=== PATIENT | male | born 1955 | race African-American/Black ===

== ENCOUNTER 2022-09-18 18:12 | Observation (INO) ==
--- NOTE | 2022-09-18 18:38 | ED.PDOC ---
General ED Provider: Dr. MARJORIE JANSEN MD Chief Complaint: Weakness Stated Complaint: Patient was diagnosed with covid infection 5 days ago. He has since suffered progressive generalized weakness and is now unable to stand or ambulate. He and his can no longer provide necessary care for him at home. Patient has no other complaints. Of note, he does have a fractured left shoulder from 06/04. Time Seen by Provider: 09/18/22 18:20 Primary Care Provider: JULIO RACHEL Nursing and Triage Documentation Reviewed and Agree: Yes Does patient meet sepsis criteria?: No System Inflammatory Response Syndrome: Not Applicable Sepsis Protocol: For patient's 13 years and over: Temp is 96.8 and below OR 101 and greater Pulse >90 BPM Resp >20/minute Acutely Altered Mental Status Are patient's symptoms suggestive of a new infection, such as: -Pneumonia -Skin, Soft Tissue -Endocarditis -UTI -Bone, Joint Infection -Implantable Device -Acute Abdominal Infection -Wound Infection -Meningitis -Blood Stream Catheter Infection -Unknown Review of Systems Review Of Systems Constitutional: Reports Weakness Eyes: Reports No symptoms Ears, Nose, Mouth, Throat: Reports No symptoms Respiratory: Reports No symptoms Cardiac: Reports No symptoms GI: Reports No symptoms : Reports No symptoms Musculoskeletal: Reports Joint pain (left shoulder) Skin: Reports No symptoms Neurological: Reports No symptoms Endocrine: Reports No symptoms Hematologic/Lymphatic: Reports No symptoms All Other Systems: Reviewed and Negative [facility] Medical History (Updated 09/18/22 @ 18:56 by MARJORIE JANSEN MD) Diabetes type 2, controlled Esophageal mass HTN (hypertension) Humerus fracture Pulmonary embolism Torn meniscus Family History (Updated 09/02/22 @ 15:18 by ARPITA COLIN RN) MATERNAL GRANDMOTHER Stroke Mother Emphysema lung Social History Smoking and tobacco status: Never smoker Physical Exam Physical Exam Appearance: Reports Well-appearing, No pain distress, Well-nourished, Obese and Other (Patient with left arm sling in place.) Ill-appearing: Mild Pain Distress: None Eyes: Reports RYAN and EOMI ENT: Reports Nose normal and Oropharynx normal Neck: Supple Respiratory: Reports Airway patent, Breath sounds clear and Breath sounds equal Cardiovascular: Reports RRR, No rub and No murmur GI/: Reports Soft, Nontender, No masses and Bowel sounds normal Musculoskeletal: Reports No edema Skin: Reports Warm, Dry and Normal color Neurological: Reports Alert and Oriented Psychiatric: Reports Affect appropriate and Mood appropriate Critical Care Note Critical Care Note Total Critical Care Time (mins): 0 Course Course Hematology/Chemistry: 09/18/22 18:43 Orders, Labs, Meds: Lab Review 09/18/22 18:43 WBC 11.50 H RBC 3.56 L Hgb 9.8 L Hct 30.8 L MCV 86.5 MCH 27.5 MCHC 31.8 RDW Coeff of Eduardo 15.2 H Plt Count 532 H Immature Gran % (Auto) 0.4 Neut % (Auto) 66.6 Lymph % (Auto) 19.7 [place] % (Auto) 10.7 H Eos % (Auto) 2.3 Baso % (Auto) 0.3 Neut # (Auto) 7.7 H Lymph # (Auto) 2.3 [place] # (Auto) 1.2 Eos # (Auto) 0.3 Baso # (Auto) 0.0 Immature Gran # (Auto) 0.1 Orders Category Date Time Status CBC W/ AUTO DIFF Stat LAB 09/18/22 18:43 Completed CMP [COMPREHENSIVE METABOLIC PANEL] Stat LAB 09/18/22 18:43 Received TSH [THYROID STIMULATING HORMONE] Stat LAB 09/18/22 18:43 Received URINALYSIS C & S IF INDICATED Stat LAB 09/18/22 18:20 Uncollected Vital Signs: Temp Pulse Resp BP Pulse Ox 09/18/22 18:19 97.2 F L 77 20 130/72 97 Discharge Plan Discharge Patient Disposition: ADMITTED INPATIENT Discharge Problem: Generalized weakness, COVID-19 virus infection, Morbid obesity, Diabetes mellitus type 2 in obese, Fracture of shoulder Did you review [place] [employer] for ALL controlled substances?: No ED Provider: MARJORIE JANSEN Condition: Fair Physician Progress Note: []
[2022-09-18 18:47] LABS: BASOPHILS % (AUTO) 0.3 % (0.0-3.0); EOSINOPHILS # (AUTO) 0.3 K/ul (0.0-0.7); EOSINOPHILS % (AUTO) 2.3 % (0.0-7.0); HEMATOCRIT 30.8 % (42.0-52.0); HEMOGLOBIN 9.8 g/dl (14.0-18.0); IMMATURE GRANULOCYTE # (AUTO) 0.1 (0.0-1.0); IMMATURE GRANULOCYTE % (AUTO) 0.4 % (0.0-5.0); LYMPHOCYTES # (AUTO) 2.3 K/uL (0.60-3.4); LYMPHOCYTES % (AUTO) 19.7 (10.0-50.0); MEAN CORPUSCULAR HEMOGLOBIN 27.5 pg (27.0-31.0); MEAN CORPUSCULAR HGB CONC 31.8 (31.8-35.4); MEAN CORPUSCULAR VOLUME 86.5 fl (80.0-94.0); MONOCYTES # (AUTO) 1.2 K/uL (0.4-2.0); MONOCYTES % (AUTO) 10.7 (0-10); NEUTROPHILS # (AUTO) 7.7 K/ul (2.0-6.9); NEUTROPHILS % (AUTO) 66.6 % (42.2-75.2); PLATELET COUNT 532 10^3/uL (140-440); RDW COEFFICIENT OF VARIATION 15.2 % (11.6-14.8); RED BLOOD COUNT 3.56 10^6/ul (4.70-6.10)
[2022-09-18 18:58] LABS: ALANINE AMINOTRANSFERASE 13.9 U/L (0-50); ALBUMIN 3.53 g/dL (3.5-5.0); ALKALINE PHOSPHATASE 90.6 U/L (56-119); ASPARTATE AMINO TRANSFERASE 51.1 U/L (17-59); BILIRUBIN,TOTAL 1.02 mg/dL (0.2-1.3); BLOOD UREA NITROGEN 14.6 mg/dL (9-20); CALCIUM 9.13 mg/dL (8.4-10.2); CHLORIDE 94.1 mmol/L (98-107); CREATININE 0.9 mg/dL (0.60-1.10); GLUCOSE 104.6 mg/dL (74-106); POTASSIUM 3.53 mmol/L (3.5-5.1); SODIUM 132.7 mmol/L (134.5-145); TOTAL PROTEIN 7.52 g/dL (6.3-8.2)
--- NOTE | 2022-09-18 19:07 | PCM ---
Chief Complaint Chief Complaint: generalized weakness History of Present Illness History of Present Illness: Patient was diagnosed with covid 19 infection 5 days ago. He has since developed progressively generalized weakness and is unable to stand or ambulate. He is otherwise asymptomatic with regard to his covid. Of note, he also has a fractured left shoulder which further complicates his condition. Patient is admitted now for PT and ultimately placement for technician terminal and repeater PT and care. Review of Systems Constitutional: Reports Weakness and Fatigue Eyes: Reports No symptoms Ears: Reports No symptoms Nose: Reports No symptoms Throat: Reports No symptoms Mouth: Reports No symptoms Respiratory: Reports No symptoms Cardiovascular: Reports No symptoms Gastrointestinal: Reports No symptoms Genitourinary: Reports No symptoms Neurological: Reports No symptoms Musculoskeletal: Reports Other (left shoulder pain) Skin: Reports No symptoms Immunology: Reports No symptoms Hematology: Reports No symptoms Endocrine: Reports No symptoms Psychiatric: Reports No symptoms Habits: Denies Tobacco use, Substance use, Alcohol use or Other Allergies Allergies Allergy/AdvReac Type Severity Reaction Status Date / Time shellfish derived AdvReac Verified 09/18/22 18:29 [facility] Medical History (Updated 09/18/22 @ 18:56 by MARJORIE JANSEN MD) Diabetes type 2, controlled Esophageal mass HTN (hypertension) Humerus fracture Pulmonary embolism Torn meniscus Family History (Updated 09/02/22 @ 15:18 by ARPITA COLIN RN) MATERNAL GRANDMOTHER Stroke Mother Emphysema lung Social History Smoking and tobacco status: Never smoker Body Composition Height: 6 ft 6.5 in Weight: 173.1 kg Body Mass Index (BMI): 43.5 Vital Signs Temperature: 97.2 F Pulse Rate: 77 Respiratory Rate: 20 Blood Pressure: 130/72 O2 Sat by Pulse Oximetry: 97 Physical Examination Appearance: Reports Well-appearing, No pain distress, Well-nourished and Obese (Patient morbidly obese. He has a left arm sling in place.) Ill-appearing: Mild Pain Distress: None Eyes: Reports RYAN and EOMI ENT: Reports Nose normal and Oropharynx normal Neck: Supple Respiratory: Reports Airway patent, Breath sounds clear and Breath sounds equal Cardiovascular: Reports RRR, No rub and No murmur GI/: Reports Soft, Nontender, No masses, Bowel sounds normal and No Organomegaly Musculoskeletal: Reports Other (Left shoulder with limited ROM.) Skin: Reports Warm, Dry and Normal color Neurological: Reports Alert and Oriented Psychiatric: Reports Affect appropriate and Mood appropriate Lab/Tests/Diagnostic Imaging Lab/Tests/Diagnostic Imaging: Lab Review 09/18/22 18:43 WBC 11.50 H RBC 3.56 L Hgb 9.8 L Hct 30.8 L MCV 86.5 MCH 27.5 MCHC 31.8 RDW Coeff of Eduardo 15.2 H Plt Count 532 H Immature Gran % (Auto) 0.4 Neut % (Auto) 66.6 Lymph % (Auto) 19.7 [place] % (Auto) 10.7 H Eos % (Auto) 2.3 Baso % (Auto) 0.3 Neut # (Auto) 7.7 H Lymph # (Auto) 2.3 [place] # (Auto) 1.2 Eos # (Auto) 0.3 Baso # (Auto) 0.0 Immature Gran # (Auto) 0.1 Orders Category Date Time Status CBC W/ AUTO DIFF Stat LAB 09/18/22 18:43 Completed CMP [COMPREHENSIVE METABOLIC PANEL] Stat LAB 09/18/22 18:43 Received TSH [THYROID STIMULATING HORMONE] Stat LAB 09/18/22 18:43 Received URINALYSIS C & S IF INDICATED Stat LAB 09/18/22 18:20 Uncollected Assessment (1) Generalized weakness: Status: Acute Code(s): R53.1 - Weakness SNOMED Code(s): 42181153 (2) COVID-19 virus infection: Status: Acute Code(s): U07.1 - COVID-19 SNOMED Code(s): 487350476 (3) Morbid obesity: Status: Acute Code(s): E66.01 - Morbid (severe) obesity due to excess calories SNOMED Code(s): 209575929 (4) Diabetes mellitus type 2 in obese: Status: Acute Code(s): E11.69 - Type 2 diabetes mellitus with other specified complication; E66.9 - Obesity, unspecified SNOMED Code(s): 92147646 (5) Fracture of shoulder: Status: Acute Code(s): S42.90XA - Fracture of unspecified shoulder girdle, part unspecified, initial encounter for closed fracture SNOMED Code(s): 43446373780934932 Plan Plan: Patient to be admitted for medical care, physical therapy and evaluation for possible placement for alf rehab.
[2022-09-18] MEDS ORDERED: DEXTROSE 50%-WATER ABBOJECT IVP PRN (19:23)
[2022-09-18 19:29] LABS: THYROID STIMULATING HORMONE 1.05 uIU/L (0.465-4.68)
[2022-09-18] MEDS ORDERED: PROAIR HFA (SINGLE PATIENT USE) IH PRN (19:29)
[2022-09-18 20:18] LABS: SARS COV-2 RNA RAPID NAAT POSITIVE (NEGATIVE)
[2022-09-18] MEDS ORDERED: PEPCID PO SCH (21:00)
[2022-09-18] MEDS ORDERED: LEVEMIR SUBCUT SCH (21:00)
[2022-09-18] MEDS: ELIQUIS PO SCH (21:54)
[2022-09-18] MEDS: NORCO 7.5-325 PO PRN (21:54)
[2022-09-18] MEDS: ZYLOPRIM PO SCH (21:55)
[2022-09-18] MEDS ORDERED: HUMALOG SUBCUT PRN (22:01)
[2022-09-18] MEDS: LANTUS SUBCUT SCH (22:16)
[2022-09-18 22:40] VITALS: BMI 39.9
[2022-09-18 23:00] LABS: BILIRUBIN,URINE Negative (NEGATIVE); CLARITY,URINE Clear (CLEAR); COLOR,URINE Yellow (YELLOW); GLUCOSE, URINE (UA) Negative (NEGATIVE); KETONES,URINE Negative (NEGATIVE); LEUKOCYTE ESTERASE ,URINE Negative (NEGATIVE); NITRITE,URINE Negative (NEGATIVE); PROTEIN,URINE 2+ (NEGATIVE); URINE, BLOOD Negative (NEGATIVE)
[2022-09-18 23:07] LABS: BACTERIA,URINE 2+ (NOT PRESENT); MUCUS,URINE TRACE (NOT PRESENT)
[2022-09-19] MEDS: NORCO 7.5-325 PO PRN ×3 (03:59→22:18)
[2022-09-19] MEDS ORDERED: VENTOLIN HFA (PER PUFF-WITH SPACER) IH PRN (07:14)
[2022-09-19] MEDS: ZYLOPRIM PO SCH ×2 (08:33→20:39)
[2022-09-19] MEDS: ELIQUIS PO SCH ×2 (08:33→20:38)
[2022-09-19] MEDS: LANTUS SUBCUT SCH ×2 (08:33→20:39)
[2022-09-19] MEDS: PEPCID PO SCH ×2 (08:34→17:36)
--- NOTE | 2022-09-19 12:36 | PCM.PROG ---
Subjective: weakness, covid, obesity Objective: Vitals: T=97 F, P=94, R=16, TR=729/65, SPO2=97 HEENT: []conjunctiva clear Neck: []supple Lungs: [] clear CVS: []rrr Abdomen: []soft and nontender Extremities: []nontender Neurological: []alert and oriented Skin: []pink Lab/Tests/Diagnostic Imaging: [] Hb 9.8 (1) Generalized weakness: Status: Acute Code(s): R53.1 - Weakness SNOMED Code(s): 49436369 (2) COVID-19 virus infection: Status: Acute Code(s): U07.1 - COVID-19 SNOMED Code(s): 917347737 (3) Morbid obesity: Status: Acute Code(s): E66.01 - Morbid (severe) obesity due to excess calories SNOMED Code(s): 265257668 (4) Diabetes mellitus type 2 in obese: Status: Acute Code(s): E11.69 - Type 2 diabetes mellitus with other specified complication; E66.9 - Obesity, unspecified SNOMED Code(s): 71890547 (5) Fracture of shoulder: Status: Acute Code(s): S42.90XA - Fracture of unspecified shoulder girdle, part unspecified, initial encounter for closed fracture SNOMED Code(s): [id number] Plan: am labs, ot and pt, [place] placement
[2022-09-20] MEDS: PEPCID PO SCH (05:43)
[2022-09-20] MEDS: NORCO 7.5-325 PO PRN ×2 (07:11→13:25)
[2022-09-20] MEDS: LANTUS SUBCUT SCH (08:25)
[2022-09-20] MEDS: ZYLOPRIM PO SCH (08:26)
[2022-09-20] MEDS: ELIQUIS PO SCH (08:26)
--- NOTE | 2022-09-20 10:55 | PCM.DC ---
Final Diagnosis: covid +, deconditioning Physical Exam Appearance: Well-appearing and Obese Ill-appearing: None Pain Distress: None Eyes: Conjunctiva clear ENT: Nose normal Neck: Supple Respiratory: Airway patent Musculoskeletal: ROM intact Skin: Normal color Neurological: Alert and Oriented Psychiatric: Affect appropriate (1) Generalized weakness: Status: Acute Code(s): R53.1 - Weakness SNOMED Code(s): 63001744 (2) COVID-19 virus infection: Status: Acute Code(s): U07.1 - COVID-19 SNOMED Code(s): 112619615 (3) Morbid obesity: Status: Acute Code(s): E66.01 - Morbid (severe) obesity due to excess calories SNOMED Code(s): 531233868 (4) Diabetes mellitus type 2 in obese: Status: Acute Code(s): E11.69 - Type 2 diabetes mellitus with other specified complication; E66.9 - Obesity, unspecified SNOMED Code(s): 77679263 (5) Fracture of shoulder: Status: Acute Code(s): S42.90XA - Fracture of unspecified shoulder girdle, part unspecified, initial encounter for closed fracture SNOMED Code(s): 05327415093995158 Reason for Hospitalization: weakness Prognosis/Condition at Discharge: fair Medications at Discharge: all home meds Lab/Diagnostics: Hb 9.9 Education Provided to Patient and Family: weight loss Follow-ups: see your doctor Discharge Disposition: [facility] Hospital Course: stable Plan: discharge to [facility]
[2022-09-20 14:19] VITALS: BP 147/75; TEMP 96.7
== END 2022-09-20 15:10 ==
LOC: ED 18:12 → INTOOBSV 21:00 → SCU 21:00
PROVIDERS: ADMIT Surgery; ATTEND Emergency Medicine Emergency Medical Services
DX: Z68.41 Body mass index [BMI] 40.0-44.9, adult; E66.01 Morbid (severe) obesity due to excess calories; E11.69 Type 2 diabetes mellitus with other specified complication; U07.1 COVID-19; R53.1 Weakness; S42.92XA Fracture of left shoulder girdle, part unspecified, initial encounter for closed fracture; Z72.3 Lack of physical exercise; I10 Essential (primary) hypertension